=== PATIENT | male | born 1955 | race Caucasian/White ===

== ENCOUNTER 2017-03-31 06:26 | Day surgery (SDC) | payer BC ==
[2017-03-31] MEDS ORDERED: Ciprofloxacin in D5W 400 MG in Premix Bag 1 BAG IV ONE ×2 (07:00)
[2017-03-31] MEDS ORDERED: Sodium Chloride 0.9% 2.5 ML Syringe FLUSH PRN (07:00)
[2017-03-31] MEDS ORDERED: Sodium Chloride 0.9% 10 ML Syringe FLUSH PRN (07:00)
[2017-03-31] MEDS ORDERED: Lactated Ringers 1,000 ML IV SCH (07:00)
[2017-03-31] MEDS ORDERED: Scopolamine 1.5 MG Transdermal Patch TRDERM PRN (07:16)
[2017-03-31] MEDS ORDERED: Midazolam 1 MG/ML 2 ML SDV IVPUSH ONE (07:17)
--- NOTE | 2017-03-31 07:21 | PCM.PREANE ---
Preanesthetic Assessment - Anesthesia/Transfusion/Family Hx Anesthesia History: Prior Anesthesia Reaction Transfusion History: Prior Transfusion Without Reaction - Review of Systems General: No Symptoms Pulmonary: No Symptoms Cardiovascular: No Symptoms Gastrointestinal: No Symptoms Neurological: No Symptoms Other: Reports: None - Physical Assessment NPO Status Date: 03/30/17 NPO Status Time: 21:00 O2 Sat by Pulse Oximetry: 96 Respiratory Rate: 14 Vital Signs: Last Vital Signs Temp 98.6 F 03/31/17 06:40 Pulse 69 03/31/17 06:40 Resp 14 03/31/17 06:40 BP 131/85 03/31/17 06:40 Pulse Ox 96 03/31/17 06:40 Height: 6 ft 1 in Weight: 87.09 kg ASA Class: 2 Mental Status: Alert & Oriented x3 Airway Class: Mallampati = 2 Dentition: Reports: Normal Dentition Thyro-Mental Finger Breadths: 3 Mouth Opening Finger Breadths: 3 ROM/Head Extension: Limited/Partial Lungs: Clear to Auscultation, Normal Respiratory Effort Cardiovascular: Regular Rate, Regular Rhythm, Murmurs - Allergies Allergies/Adverse Reactions: Allergies Allergy/AdvReac Type Severity Reaction Status Date / Time meperidine HCl [From Demerol] Allergy Difficulty Verified 03/26/17 13:18 Swallowing Penicillins Allergy Anaphylactic Verified 03/26/17 13:18 Shock propoxyphene HCl Allergy Difficulty Verified 03/26/17 13:18 [From Darvon] Breathing - Acknowledgements Anesthesia Type Planned: General Anesthesia Pt an Appropriate Candidate for the Planned Anesthesia: Yes Alternatives and Risks of Anesthesia Discussed w Pt/Guardian: Yes Pt/Guardian Understands and Agrees with Anesthesia Plan: Yes PreAnesthesia Questionnaire HEENT History: Reports: Hard of Hearing Other HEENT History: wears glasses, has bilateral hearing aides Cardiovascular History: Reports: None Respiratory History: Reports: None Gastrointestinal History: Reports: GERD Genitourinary History: Reports: Prostate Disorder Musculoskeletal History: Reports: Back Pain, Chronic, Fracture Other Musculoskeletal History: hx of fx clavicle Neurological History: Reports: Other (See Below) (Chronic pain syndrome) Psychiatric History: Reports: None Endocrine/Metabolic History: Reports: None Hematologic History: Reports: Blood Transfusion(s) Immunologic History: Reports: None Oncologic (Cancer) History: Reports: Leukemia, Prostate Other Oncologic History: 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, had radiation which caused leukemia Dermatologic History: Reports: None - Infectious Disease History Infectious Disease History: Reports: None - Past Surgical History Male Surgical History: Reports: Prostatectomy Neurological Surgical History: Reports: Laminectomy, Lumbar Spine Musculoskeletal Surgical History: Reports: Arthroscopic Knee Other Musculoskeletal Surgeries/Procedures:: has 2 screws in left knee - SUBSTANCE USE Smoking Status *Q: Former Smoker Tobacco Use Within Last Twelve Months: No Number of Drinks Per Day: 1 Recreational Drug Use History: No - HOME MEDS Home Medications: Home Meds Gabapentin [Neurontin] 600 mg PO ACLUNCH 07/11/13 [History] Imatinib [Gleevec] 400 mg PO ASDIRECTED 07/11/13 [History] Multivitamin [Multiple Vitamins] 1 each PO DAILY 07/11/13 [History] Chlorhexidine Gluconate 0.12% [Peridex 0.12% Rinse] 1 dose SSPIT ASDIRECTED [History] Gabapentin [Neurontin] 900 mg PO BID 03/26/17 [History] Glucosamine Sulfate 2KCl [Glucosamine] 2,000 mg PO DAILY 03/26/17 [History] Magnesium 250 mg PO DAILY 03/26/17 [History] Ranitidine HCl [Zantac] 150 mg PO DAILY PRN 03/26/17 [History] Sildenafil [Viagra] 1 tab PO ASDIRECTED PRN 03/26/17 [History] clonazePAM [Klonopin] 0.5 - 1 tab PO Q8H PRN 03/26/17 [History] cycloSPORINE [Restasis] 1 drop EYEBOTH ASDIRECTED 03/26/17 [History] oxyCODONE HCl [Oxycodone HCl] 0.5 - 1 tab PO ASDIRECTED PRN 03/26/17 [History] - CURRENT (IN HOUSE) MEDS Current Meds: Current Medications Ciprofloxacin/Dextrose 400 mg/ (Premix) 200 mls @ 200 mls/hr IV ONCALL ONE Stop: 03/31/17 07:59 Lactated Ringer's (Ringers, Lactated) 1,000 mls @ 100 mls/hr IV ASDIRECTED NAFISA Scopolamine (Transderm-Scop) 1.5 mg TRDERM Q72H PRN PRN Reason: PONV Sodium Chloride (Saline Flush) 10 ml FLUSH ASDIRECTED PRN PRN Reason: Keep Vein Open Sodium Chloride (Saline Flush) 2.5 ml FLUSH ASDIRECTED PRN PRN Reason: Keep Vein Open
[2017-03-31] MEDS ORDERED: Bupivacaine 0.5% 10 ML SDV ONE (07:28)
[2017-03-31] MEDS ORDERED: Rocuronium 10 MG/ML 10 ML Syringe ONE (07:33)
[2017-03-31] MEDS ORDERED: Ondansetron 4 MG/2 ML SDV ONE (07:33)
[2017-03-31] MEDS ORDERED: Succinylcholine/Normal Saline 200 MG/10 ML Syringe ONE (07:33)
[2017-03-31] MEDS ORDERED: Lidocaine 2% 5 ML SDV ONE (07:33)
[2017-03-31] MEDS ORDERED: Propofol 200 MG/20 ML SDV ONE (07:34)
[2017-03-31] MEDS ORDERED: fentaNYL 100 MCG/2 ML SDV ONE (07:34)
[2017-03-31] MEDS ORDERED: Midazolam 1 MG/ML 2 ML SDV ONE (07:34)
[2017-03-31] MEDS ORDERED: fentaNYL 250 MCG/5 ML SDV ONE (07:34)
[2017-03-31] MEDS ORDERED: Dexamethasone 4 MG/ML 5 ML MDV ONE (07:37)
[2017-03-31] MEDS ORDERED: ePHEDrine 50 MG/ML SDV ONE (08:11)
[2017-03-31] MEDS ORDERED: Glycopyrrolate 0.2 MG/ML SDV ONE (08:12)
[2017-03-31] MEDS ORDERED: Phenylephrine/Normal Saline 100 MCG/ML 10 ML Syringe ONE (08:14)
[2017-03-31] MEDS ORDERED: Ondansetron 4 MG/2 ML SDV IVPUSH PRN (08:29)
[2017-03-31] MEDS ORDERED: fentaNYL 100 MCG/2 ML SDV IVPUSH PRN (08:29)
[2017-03-31] MEDS ORDERED: Promethazine 25 MG/ML SDV IM PRN (08:29)
[2017-03-31] MEDS ORDERED: HYDROmorphone 2 MG/ML SDV IVPUSH ONE (10:37)
[2017-03-31] MEDS ORDERED: Haloperidol Lactate 5 MG/ML SDV IM ONE (10:38)
--- NOTE | 2017-03-31 12:31 | PCM48HPAN ---
Post Anesthesia Note - EVALUATION WITHIN 48HRS OF ANESTHETIC Vital Signs in Normal Range: Yes Patient Participated in Evaluation: Yes Respiratory Function Stable: Yes Airway Patent: Yes Cardiovascular Function Stable: Yes Hydration Status Stable: Yes Pain Control Satisfactory: Yes Nausea and Vomiting Control Satisfactory: Yes Mental Status Recovered: Yes
--- NOTE | 2017-03-31 18:22 | OR ---
SURGEON: Steven Dodge M.D. DATE OF PROCEDURE: 03/31/2017 PREOPERATIVE DIAGNOSIS: Right inguinal hernia. POSTOPERATIVE DIAGNOSIS: Right inguinal hernia. PROCEDURE PERFORMED: Right inguinal hernia repair. DESCRIPTION OF PROCEDURE: The patient was given general anesthesia. He was in the supine position. Lower abdomen and external genitalia area were all prepped and draped in sterile drapes. A right groin incision was made and carried through Jacob fascia and external oblique aponeurosis. The cord structures were identified. The hernia sac was identified and suture ligated at the level of the internal ring with 2-0 silk suture. The defect in the transversalis fascia was repaired using 3-0 silk sutures. The conjoint tendon was sutured to the base of the inguinal ligament using interrupted 2-0 silk sutures. At that point, the pulse was still visible in the cord structures. The external oblique aponeurosis was then closed with interrupted 3-0 silk sutures. Subcutaneous tissues were re-approximated with 3- 0 chromic. Skin was closed with 4-0 subcuticular nylon. Estimated blood loss was under 10 mL. The patient tolerated the procedure well and was moved to the recovery room in good condition. PRAKASH / LYNN /[id number]
== END 2017-03-31 13:20 | disposition home or self-care (01) ==
LOC: MW.SDS 06:26
PROVIDERS: ATTEND Urology
DX: K40.90 Unilateral inguinal hernia, without obstruction or gangrene, not specified as recurrent (principal); F41.9 Anxiety disorder, unspecified; G89.4 Chronic pain syndrome; K21.9 Gastro-esophageal reflux disease without esophagitis; I10 Essential (primary) hypertension; G62.9 Polyneuropathy, unspecified; C61 Malignant neoplasm of prostate; Z85.6 Personal history of leukemia; Z87.891 Personal history of nicotine dependence; Z92.3 Personal history of irradiation; Z88.0 Allergy status to penicillin; Z88.5 Allergy status to narcotic agent; Z79.899 Other long term (current) drug therapy; Z97.4 Presence of external hearing-aid; Z90.79 Acquired absence of other genital organ(s); Z98.890 Other specified postprocedural states
CPT/HCPCS: 49505; A9270; J0744; J1100; J1170; J2250; J2405; J3010; J7120; 00830; 88302; J2704